=== PATIENT | female | born 1970 | race Hispanic/Latino ===

== ENCOUNTER 2017-05-17 10:45 | Outpatient (CLI) | payer OTHER ==
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
== END 2017-05-17 10:46 | disposition home or self-care (01) ==
LOC: SCSRAD 10:45
PROVIDERS: ATTEND Physician Assistant
DX: M54.5 Low back pain (principal); M47.816 Spondylosis without myelopathy or radiculopathy, lumbar region
CPT/HCPCS: 72100

== ENCOUNTER 2017-06-02 12:20 | Outpatient (CLI) | payer OTHER ==
--- NOTE | 2017-06-02 15:55 | CT ---
CT ABDOMEN AND PELVIS WITH CONTRAST: HISTORY: Left upper quadrant pain. Post gastric sleeve procedure. COMPARISON: Abdomen and pelvis CT from 11/30/2016. TECHNIQUE: Multiple axial tomograms obtained through the abdomen and pelvis with IV enhancement. Oral contrast was administered. FINDINGS: The lung bases are clear. The liver, spleen, and pancreas are unremarkable. Gastric sleeve changes are again seen involving the stomach. Mild thickening of the esophageal wall and the distal esopha christian at the EG junction. There continues to be a right adrenal mass. This mass appears to have slightly enlarged since the p rior exam, measuring 4.4 x 3.5 cm today. It previously measured 4.1 x 3.1 cm. This mass is complex and is suspicious. It is not adequately characterized on this single phase study, although the siz e alone makes this a worrisome lesion. The kidneys are unremarkable. The urinary bladder is contracted and not well evaluated. Small cindy l loops appear normal. The aorta is of normal caliber. Images through the pelvis show a mildly het erogeneous uterus, which could represent fibroid change. The uterine size is also prominent. The a dnexa appear unremarkable. IMPRESSION: 1. Right adrenal mass has slightly increased in size since the exam of 11/30/2016. Neoplasm should be excluded. 2. Postoperative gastric sleeve changes. 3. Mild wall thickening of the distal esophagus. Findings were discussed with Dr. Rothman at the time of this dictation. CODE CR POS: [facility]
== END 2017-06-02 12:21 | disposition home or self-care (01) ==
LOC: CT 12:20
PROVIDERS: ATTEND Surgery
DX: R10.12 Left upper quadrant pain (principal)
CPT/HCPCS: 74177

== ENCOUNTER 2017-08-01 11:51 | Emergency (ER) | payer OTHER ==
[2017-08-01 12:16] LABS: #Eosinphils 0.1 thou/uL (0.0-0.7); #Lymphocytes 0.6 thou/uL (1.20-3.40); #Monocytes 0.5 thou/uL (0.11-0.59); #Neutrophils 5.2 thou/uL (1.40-6.50); %Eosinophils 1.6 % (0.0-10.0); %Lymphocytes 8.7 % (21.0-51.0); %Monocytes 8.1 % (0.0-10.0); %Neutrophils 81.6 % (42.0-75.0); Hemoglobin 11.4 g/dL (12.0-16.0); Mean Corpuscular HGB CONC 31.5 g/dL (32.0-36.0); Mean Corpuscular Hemoglobin 28.1 pg (27.0-31.0); Mean Corpuscular Volume 89.2 fl (81.0-99.0); Mean Platelet Volume 6.5 fL (7.4-10.4); Platelet Count 387 thou/uL (130-400); RBC Distribution Width 13.8 % (11.5-14.5); Red Blood Cell (RBC) Count 4.06 mill/uL (4.20-5.40); White Blood Cell (WBC) Count 6.4 thou/uL (4.8-10.8)
--- NOTE | 2017-08-01 12:36 | RAD ---
PORTABLE CHEST: Date: 08-01-17 Time: 12:18 p.m. History: Dyspnea, fever. FINDINGS: Comparison made with exam from 11-30-16. The heart size is normal. No focal areas of consolidation, pneumothorax, or pleural effusions are see n. IMPRESSION: No radiographic evidence of acute cardiopulmonary process. POS: [facility]
[2017-08-01 12:44] LABS: ALT (SGPT) 72 U/L (8-55); AST (SGOT) 72 U/L (5-34); Albumin 3.8 g/dL (3.5-5.0); Alkaline Phosphatase 121 U/L (40-150); Anion Gap 13 mmol/L (10-20); BUN (Urea Nitrogen) 7 mg/dL (7.0-18.7); Bilirubin, Total 0.5 mg/dL (0.2-1.2); Calc. Creatinine Clearance 0 mL/min (70-130); Calcium 9.3 mg/dL (7.8-10.44); Carbon Dioxide 24 mmol/L (22-29); Chloride 105 mmol/L (98-107); Estimated GFR-MDRD 79; Globulin 2.6 g/dL (2.4-3.5); Glucose 120 mg/dL (70-105); Potassium 3.5 mmol/L (3.5-5.1); Protein, Total 6.4 g/dL (6.0-8.3); Sodium 138 mmol/L (136-145)
[2017-08-01 13:04] LABS: CKMB 0.4 ng/mL (0-6.6); Troponin I Less than 0.010 ng/mL (< 0.028)
[2017-08-01] MEDS ORDERED: ISOVUE-370 76%-LOCM 1 ML ONE (14:01)
[2017-08-01] MEDS ORDERED: traMADol HCl 50 MG TAB ONE (15:14)
[2017-08-01] MEDS ORDERED: Oseltamivir 75 MG CAP PO SCH (15:15)
--- NOTE | 2017-08-01 15:19 | CT ---
CT ARTERIOGRAM CHEST WITH IV CONTRAST AND 3D MIP IMAGING: History: Chest pain. Dyspnea. Recent abdominal surgery. FINDINGS: There is good contrast opacification of the pulmonary arteries and thoracic aorta with normal branchi ng of the great vessels. Mild atelectasis is present at each lung base. There is minimal bilateral pl eural fluid. No evidence of pneumothorax or bulky adenopathy. Post-operative changes of the stomach a nd surgical absence of the right adrenal gland are noted. Minimal residual abdominal gas remains. Small hiatal hernia is noted. IMPRESSION: 1. No CT evidence of pulmonary embolus. 2. Post-operative changes consistent with recent abdominal surgery. POS: [facility]
[2017-08-01 16:14] LABS: Lactic Acid 0.9 mmol/L (0.5-2.2)
[2017-08-01] MEDS ORDERED: Ketorolac Tromethamine 30 MG/ML VIAL ONE (17:03)
== END 2017-08-01 17:57 | disposition home or self-care (01) ==
LOC: ERS 11:51
DX: G89.18 Other acute postprocedural pain (principal); R06.00 Dyspnea, unspecified; J11.1 Influenza due to unidentified influenza virus with other respiratory manifestations
CPT/HCPCS: 36415; 71010; 71275; 80053; 82553; 83605; 83880; 84484; 85025; 93005; 96374; J1885

== ENCOUNTER 2017-10-17 16:09 | Outpatient (CLI) | payer OTHER ==
[2017-10-17 16:45] LABS: #Basophils 0.1 thou/uL (0.0-0.2); #Eosinphils 0.1 thou/uL (0.0-0.7); #Lymphocytes 1.7 thou/uL (1.20-3.40); #Monocytes 0.5 thou/uL (0.11-0.59); #Neutrophils 3.5 thou/uL (1.40-6.50); %Eosinophils 0.9 % (0.0-10.0); %Lymphocytes 29.2 % (21.0-51.0); %Neutrophils 60.9 % (42.0-75.0); Hemoglobin 10.7 g/dL (12.0-16.0); Mean Corpuscular HGB CONC 31.9 g/dL (32.0-36.0); Mean Corpuscular Hemoglobin 26.5 pg (27.0-31.0); Mean Corpuscular Volume 83.2 fl (81.0-99.0); Mean Platelet Volume 6.3 fL (7.4-10.4); Platelet Count 405 thou/uL (130-400); RBC Distribution Width 13.7 % (11.5-14.5); Red Blood Cell (RBC) Count 4.03 mill/uL (4.20-5.40); White Blood Cell (WBC) Count 5.8 thou/uL (4.8-10.8)
[2017-10-17 17:05] LABS: Anion Gap 8 mmol/L (10-20); BUN (Urea Nitrogen) 7 mg/dL (7.0-18.7); Calc. Creatinine Clearance 0 mL/min (70-130); Calcium 9.5 mg/dL (7.8-10.44); Carbon Dioxide 26 mmol/L (22-29); Chloride 105 mmol/L (98-107); Estimated GFR-MDRD 90; Glucose 91 mg/dL (70-105); Potassium 3.7 mmol/L (3.5-5.1); Sodium 135 mmol/L (136-145)
[2017-10-17 17:45] LABS: BHCG - Serum Negative (NEGATIVE); Pregs Control Background? CLEAR/WHITE (CLR/WHITE); Pregs Control Bar Appear? YES (CONTROL BAR)
== END 2017-10-17 16:10 | disposition home or self-care (01) ==
LOC: LABBT 16:09
PROVIDERS: ATTEND Orthopaedic Surgery
DX: Z01.818 Encounter for other preprocedural examination (principal); G56.21 Lesion of ulnar nerve, right upper limb
CPT/HCPCS: 80048; 84703; 85025; 93005; 93010

== ENCOUNTER 2017-10-19 05:59 | Day surgery (SDC) | payer OTHER ==
[2017-10-17 16:25] VITALS: BMI 32.5
[2017-10-19] MEDS ORDERED: Lidocaine 1% (PF) 30 ML VIAL ONE (06:43)
[2017-10-19] MEDS ORDERED: Fentanyl 250 MCG/5 ML VIAL ONE ×2 (07:04→09:42)
[2017-10-19] MEDS ORDERED: Metoclopramide HCl 10 MG/2 ML VIAL ONE ×2 (07:12→14:41)
[2017-10-19] MEDS ORDERED: Clindamycin/D5W 600 mg/50 ml Premix Bag ONE (07:13)
[2017-10-19] MEDS ORDERED: Midazolam HCl 2 mg/2 ml Vial ONE (07:13)
[2017-10-19] MEDS ORDERED: Bupivacaine 0.5% 10 ML VIAL ONE ×2 (07:48→08:41)
--- NOTE | 2017-10-19 11:22 | OP ---
DATE OF PROCEDURE: 10/19/2017 PREOPERATIVE DIAGNOSIS: Right cubital tunnel syndrome. POSTOPERATIVE DIAGNOSIS: Right cubital tunnel syndrome. PROCEDURE PERFORMED: 1. Right open cubital tunnel release of the ulnar nerve. 2. Placement of long arm splint, right upper extremity. SURGEON: Doyle Culver M.D. PITCH FLAKER: None. BLOOD LOSS: Minimal. COMPLICATIONS: None. ANESTHESIA: She had general anesthetic. DISPOSITON: She went to recovery in stable condition. INDICATIONS: A 47-year-old female who has had symptomatic cubital tunnel syndrome and this was also documented on EMG/NCV. At this time she has failed nonoperative treatment and wished to have relief of her symptoms with surgery. DESCRIPTION OF PROCEDURE: After all appropriate consent forms were explained and signed, she was cliff en to the operating room and at this time was given general anesthetic. Once anesthesia was appropri ate she had a tourniquet placed up as high as possible on the right arm. The right upper extremity w as then prepped and draped in surgical fashion. Limb was exsanguinated, tourniquet taken up to 250 m mHg. Using loupe magnification, a 15 blade was used to incise down through the skin and the bipolar cautery was used to coagulate any brisk venous bleeding. At this time, we then used surgical scissor s to dissect down to the ulnar nerve. This was carefully dissected out again using scissors and loop s to free it up midway up the brachium, all the way down across the cubital tunnel to the first motor branch distally. At this time, all brisk venous bleeding was coagulated with the bipolar, we thorou ghly irrigated and dried. We then cleaned the soft tissue off of the flexor forearm mass so that the nerve could rest on there. Once this was done and the nerve was freed up, it would easily move ante riorly, we used multiple Vicryl sutures to close the cubital tunnel so that the nerve would not fall back in the cubital tunnel. We then placed a moist Ray-Michael sponge and let the tourniquet down. Hemo stasis was achieved with the bipolar, we then thoroughly irrigated and dried. We then infiltrated th e operative field with 1/2% Marcaine without epinephrine for postop pain relief. We then used 2-0 Vi cryl and nylon sutures to close our incision. A bulky sterile dressing was applied as well as a long arm posterior splint. The patient was awakened. She was taken to the recovery room in stable condi tion. All counts were correct at the end of the case. She received preoperative IV antibiotics.
[2017-10-19] MEDS ORDERED: Hydrocortisone Sod Succ/PF 100 mg/2 ml Vial ONE (14:41)
[2017-10-19] MEDS ORDERED: Ondansetron HCl/PF 4 MG/2 ML Vial ONE (14:41)
[2017-10-19] MEDS ORDERED: Propofol 200 MG/20 ML VIAL ONE (14:41)
[2017-10-19] MEDS ORDERED: Ketorolac Tromethamine 30 MG/ML VIAL ONE (14:41)
[2017-10-19] MEDS ORDERED: Glycopyrrolate 0.2 MG/ML 5 ML SYRINGE ONE (14:41)
[2017-10-19] MEDS ORDERED: Lidocaine 1% PF 5 ML VIAL ONE (14:41)
== END 2017-10-19 10:35 | disposition home or self-care (01) ==
LOC: SDC 05:59
PROVIDERS: ATTEND Orthopaedic Surgery
PROC: 01N40ZZ Release Ulnar Nerve, Open Approach (ICD-10-PCS; principal; 2017-10-19)
DX: G56.21 Lesion of ulnar nerve, right upper limb (principal); F32.9 Major depressive disorder, single episode, unspecified; E66.9 Obesity, unspecified; Z68.32 Body mass index [BMI] 32.0-32.9, adult; Z88.0 Allergy status to penicillin; Z86.010 Personal history of colon polyps
CPT/HCPCS: 96374; J1720; J1885; J2001; J2250; J2405; J2704; J2765; J3010; J3490

== ENCOUNTER 2017-10-25 18:38 | Emergency (ER) | payer OTHER ==
[2017-10-25 20:17] LABS: #Eosinphils 0.1 thou/uL (0.0-0.7); #Lymphocytes 1.7 thou/uL (1.20-3.40); #Monocytes 0.5 thou/uL (0.11-0.59); #Neutrophils 4.7 thou/uL (1.40-6.50); %Basophils 0.7 % (0.0-1.0); %Lymphocytes 23.9 % (21.0-51.0); %Monocytes 6.7 % (0.0-10.0); %Neutrophils 67.7 % (42.0-75.0); Hemoglobin 10.4 g/dL (12.0-16.0); Mean Corpuscular HGB CONC 31.6 g/dL (32.0-36.0); Mean Corpuscular Hemoglobin 26.3 pg (27.0-31.0); Mean Corpuscular Volume 83.1 fl (81.0-99.0); Mean Platelet Volume 6.2 fL (7.4-10.4); Platelet Count 441 thou/uL (130-400); RBC Distribution Width 13.8 % (11.5-14.5); Red Blood Cell (RBC) Count 3.97 mill/uL (4.20-5.40)
[2017-10-25 20:50] LABS: ALT (SGPT) 23 U/L (8-55); AST (SGOT) 28 U/L (5-34); Albumin 3.9 g/dL (3.5-5.0); Alkaline Phosphatase 117 U/L (40-150); Anion Gap 10 mmol/L (10-20); BUN (Urea Nitrogen) 10 mg/dL (7.0-18.7); Bilirubin, Total 0.2 mg/dL (0.2-1.2); Calc. Creatinine Clearance 0 mL/min (70-130); Calcium 9.7 mg/dL (7.8-10.44); Carbon Dioxide 25 mmol/L (22-29); Chloride 107 mmol/L (98-107); Estimated GFR-MDRD 82; Globulin 2.8 g/dL (2.4-3.5); Glucose 115 mg/dL (70-105); Potassium 3.8 mmol/L (3.5-5.1); Protein, Total 6.7 g/dL (6.0-8.3); Sodium 138 mmol/L (136-145)
[2017-10-25] MEDS ORDERED: Morphine 5 MG/ML SYRINGE ONE (21:06)
[2017-10-25] MEDS ORDERED: Ondansetron HCl/PF 4 MG/2 ML Vial ONE (21:06)
[2017-10-25 21:08] LABS: CKMB 0.4 ng/mL (0-6.6); Troponin I Less than 0.010 ng/mL (< 0.028)
[2017-10-25 21:11] LABS: Bilirubin Negative (Negative); Blood, Urine Large (Negative); Clarity CLOUDY (Clear); Glucose, Urine (Dipstick) Negative (Negative); Leukocyte Moderate (Negative); Nitrite Negative (Negative); Protein, Urine (Dipstick) Negative (Neg-Trace); Specific Gravity, Urine 1.021 (1.002-1.036)
[2017-10-25 21:13] LABS: Bacteria/HPF Rare-Few HPF (None Seen); Hyaline Casts/LPF 0-3 HYALINE CAST LPF (0-3 Hyaline); Pathc Cast-AUWi Flag 0.29 (0-2.49)
--- NOTE | 2017-10-25 21:22 | RAD ---
RADIOGRAPH CHEST 1 VIEW: 10/25/17 HISTORY: 47-year-old female with nausea and emesis. FINDINGS: There are no air space densities, pulmonary edema, pneumothorax, or cardiomegaly. The lateral costop hrenic angles are sharp. IMPRESSION: No acute cardiopulmonary findings. oneal [] POS: [facility]
[2017-10-25] MEDS ORDERED: HYDROcodone/Acetaminophen 10/325 mg Tablet ONE (23:45)
== END 2017-10-26 00:20 | disposition home or self-care (01) ==
LOC: ERS 18:38
DX: E27.40 Unspecified adrenocortical insufficiency (principal); Z79.899 Other long term (current) drug therapy
CPT/HCPCS: 36415; 71045; 80053; 81003; 81015; 82533; 82553; 84484; 85025; 87086; 93005; 96361; 96374; 96375; J2270; J2405

== ENCOUNTER 2017-10-27 10:16 | Emergency (ER) | payer OTHER ==
[2017-10-27 10:53] LABS: #Monocytes 0.3 thou/uL (0.11-0.59); #Neutrophils 7.3 thou/uL (1.40-6.50); %Basophils 0.1 % (0.0-1.0); %Eosinophils 0.4 % (0.0-10.0); %Lymphocytes 11.3 % (21.0-51.0); %Monocytes 3.2 % (0.0-10.0); Hemoglobin 10.7 g/dL (12.0-16.0); Mean Corpuscular HGB CONC 30.6 g/dL (32.0-36.0); Mean Corpuscular Hemoglobin 26.2 pg (27.0-31.0); Mean Corpuscular Volume 85.6 fl (81.0-99.0); Mean Platelet Volume 6.6 fL (7.4-10.4); Platelet Count 428 thou/uL (130-400); RBC Distribution Width 14.1 % (11.5-14.5); Red Blood Cell (RBC) Count 4.09 mill/uL (4.20-5.40); White Blood Cell (WBC) Count 8.6 thou/uL (4.8-10.8)
[2017-10-27] MEDS ORDERED: Ketorolac Tromethamine 30 MG/ML VIAL ONE (11:06)
[2017-10-27 11:18] LABS: ALT (SGPT) 21 U/L (8-55); AST (SGOT) 25 U/L (5-34); Alkaline Phosphatase 109 U/L (40-150); Anion Gap 11 mmol/L (10-20); BUN (Urea Nitrogen) 11 mg/dL (7.0-18.7); Bilirubin, Total 0.3 mg/dL (0.2-1.2); Calc. Creatinine Clearance 0 mL/min (70-130); Calcium 9.6 mg/dL (7.8-10.44); Carbon Dioxide 25 mmol/L (22-29); Chloride 106 mmol/L (98-107); Estimated GFR-MDRD 84; Globulin 2.8 g/dL (2.4-3.5); Glucose 101 mg/dL (70-105); Lipase 24 U/L (8-78); Protein, Total 6.8 g/dL (6.0-8.3); Sodium 138 mmol/L (136-145)
[2017-10-27 11:21] LABS: CKMB 0.3 ng/mL (0-6.6); Troponin I Less than 0.010 ng/mL (< 0.028)
[2017-10-27] MEDS ORDERED: Mag-Al 1200 mg/1200 mg/30 ML UDCUP ONE (11:32)
[2017-10-27] MEDS ORDERED: Lidocaine Viscous Sol 2% 15 ml UD Cup ONE (11:32)
[2017-10-27] MEDS ORDERED: ISOVUE-370 76%-LOCM 1 ML ONE (11:33)
[2017-10-27] MEDS ORDERED: Promethazine HCl 25 MG/ML VIAL ONE (11:38)
[2017-10-27 12:07] LABS: BHCG - Serum Negative (NEGATIVE); Pregs Control Background? CLEAR/WHITE (CLR/WHITE); Pregs Control Bar Appear? YES (CONTROL BAR)
--- NOTE | 2017-10-27 13:12 | CT ---
CT ABDOMEN WITH CONTRAST CT PELVIS WITH CONTRAST: DATE: 10/27/17 TIME: 1222 HOURS HISTORY: 47-year-old female with severe generalized abdominal pain, with nausea. COMPARISON: 06/02/17. TECHNIQUE: IV injection of iodinated contrast media: 100 mL Isovue 370. Oral contrast media: Not administered. FINDINGS: The previously demonstrated right adrenal mass is no longer present. In fact, the entire right adrena l gland is absent now. Left adrenal gland, bilateral kidneys, liver, pancreas, and spleen are normal. Multiple surgical clips along narrowed stomach. Small sliding hiatal hernia. Lung bases are clear. N o ascites or pneumoperitoneum. Normal appendix and urinary bladder. Prominent uterus. Moderately larg e volume of stool in the rectosigmoid colon. No signs of acute colonic diverticulitis. No small bowel dilation. IMPRESSION: 1. Status post right adrenalectomy. 2. Status post vertical sleeve gastrectomy. 3. Small sliding hiatal hernia. 4. Possible constipation. SABIHA POS: [facility]
[2017-10-27 13:20] LABS: Bilirubin Negative (Negative); Clarity CLEAR (Clear); Glucose, Urine (Dipstick) Negative (Negative); Leukocyte Small (Negative); Nitrite Negative (Negative); Protein, Urine (Dipstick) Negative (Neg-Trace); Specific Gravity, Urine 1.028 (1.002-1.036); Urobilinogen 0.2 mg/dL (0.2-1.0)
[2017-10-27 13:22] LABS: Pregnancy Test - Urine (BHCG) Negative (Negative); Pregu Control Background? CLEAR/WHITE (CLR/WHITE); Pregu Control Bar Appear? YES (CONTROL BAR); Specific Gravity 1.028 (1.002-1.036)
[2017-10-27 13:23] LABS: Bacteria/HPF None Seen HPF (None Seen); Hyaline Casts/LPF 0-3 HYALINE CAST LPF (0-3 Hyaline); Pathc Cast-AUWi Flag 0.14 (0-2.49); Squamous Epithelial 0-3 HPF (0-3); WBC/HPF 0-3 HPF (0-3)
[2017-10-27 13:28] LABS: Blood, Urine Trace (Negative)
== END 2017-10-27 13:14 | disposition home or self-care (01) ==
LOC: ERS 10:16
DX: R11.2 Nausea with vomiting, unspecified (principal); R10.10 Upper abdominal pain, unspecified; Z79.899 Other long term (current) drug therapy
CPT/HCPCS: 36415; 74177; 80053; 81003; 81015; 81025; 82553; 83690; 84484; 84703; 85025; 93005; 96361; 96365; 96372; 96375; J1885; J2550